=== PATIENT | male | born 1970 | race Hispanic/Latino ===

== ENCOUNTER 2018-07-08 11:09 | Emergency (ER) | payer OTHER ==
[2018-07-08 11:23] VITALS: BP 127/95
== END 2018-07-08 11:25 | disposition left against medical advice (07) ==
LOC: ED 11:09
DX: S81.012A Laceration without foreign body, left knee, initial encounter (principal); Z53.21 Procedure and treatment not carried out due to patient leaving prior to being seen by health care provider; X58.XXXA Exposure to other specified factors, initial encounter; Y93.89 Activity, other specified; Y92.89 Other specified places as the place of occurrence of the external cause; Y99.8 Other external cause status